=== PATIENT | male | born 1985 | race Hispanic/Latino ===

== ENCOUNTER 2019-05-28 08:11 | Emergency (ER) | payer SELFPAY ==
[2019-05-28] MEDS ORDERED: Ibuprofen 600 MG TAB ONE (08:51)
== END 2019-05-28 09:00 | disposition home or self-care (01) ==
LOC: MADERS 08:11
DX: M62.838 Other muscle spasm (principal); F17.210 Nicotine dependence, cigarettes, uncomplicated
CPT/HCPCS: 99283